=== PATIENT | female | born 1925 | race Hispanic/Latino ===

== ENCOUNTER 2017-01-01 09:17 | Emergency (ER) | payer SELFPAY ==
[2017-01-01 10:05] LABS: Bilirubin Negative (Negative); Blood, Urine Trace (Negative); Clarity Hazy (Clear); Glucose, Urine (Dipstick) Negative (Negative); Leukocyte Trace (Negative); Nitrite Negative (Negative); Protein, Urine (Dipstick) 30 mg/dL (Neg-Trace); Urobilinogen 0.2 mg/dL (0.2-1.0); WBC/HPF 21-50 HPF (0-3); pH, Urine 5.5 (5.0-9.0)
[2017-01-01 10:06] LABS: Bacteria/HPF 2+ HPF (None Seen); Renal Epithelial 0-3 HPF (0-3); Transitional Epithelial 0-3 HPF (0-3)
[2017-01-01] MEDS ORDERED: Ondansetron ODT 4 MG TAB ONE (10:08)
[2017-01-01] MEDS ORDERED: HYDROcodone/Acetaminophen 10/325 mg Tablet ONE (10:08)
[2017-01-01] MEDS ORDERED: Sulfameth/Trimethoprim DS 800-160mg TAB ONE (10:26)
== END 2017-01-01 10:50 | disposition home or self-care (01) ==
LOC: MADERS 09:17
DX: N39.0 Urinary tract infection, site not specified (principal); I10 Essential (primary) hypertension
CPT/HCPCS: 81001; 87086; 99284; Q0162